=== PATIENT | female | born 1970 ===

== ENCOUNTER 2017-03-07 07:44 | Emergency (ER) | payer BC, OTHER ==
[2017-03-07] MEDS ORDERED: Tetan/Diph/Pertus SYR(Tdap)* 0.5 ML SYR(BOOSTRIX) use SYR IM ONE (08:27)
[2017-03-07] MEDS ORDERED: Rabies Vaccine, PCEC INJ* 1 ml IM ONE (08:28)
[2017-03-07] MEDS ORDERED: Rabies Immune Globulin 10 ML* 150 UNIT/ML VIAL IM ONE ×2 (08:31→09:00)
[2017-03-07] MEDS ORDERED: Rabies Immune Globulin 2 ML* 150 UNITS/ML VIAL IM ONE ×3 (08:33→09:00)
--- NOTE | 2017-03-07 08:44 | UC ---
Bite Injury/Animal HPI - HPI Summary HPI Summary: BAT EXPOSURE YESTERDAY MORNING 4AM. BAT WAS SEEN FLYING AROUND HER BEDROOM. NO BITE OF WHICH SHE IS AWARE. - History of Current Complaint Chief Complaint: UCGeneralIllness Stated Complaint: RABIES Time Seen by Provider: 03/07/17 08:25 Hx Obtained From: Patient Hx Last Menstrual Period: 02/18/17 Severity Currently: None Pain Intensity: 0 Pain Scale Used: 0-10 Numeric Has Animal Been Immunized?: No Associated Signs And Symptoms: Positive: Negative Animal Available for Observation: No Animal Control Notified: Yes - Allergies/Home Medications Allergies/Adverse Reactions: Allergies Allergy/AdvReac Type Severity Reaction Status Date / Time No Known Allergies Allergy Verified 03/07/17 07:50 Home Medications: Home Medications NK [No Home Medications Reported] 03/07/17 [History Confirmed 03/07/17] PMH/Surg Hx/FS Hx/Imm Hx Cardiovascular History: Hypertension - Surgical History Surgical History: Yes Surgery Procedure, Year, and Place: FOR ENDOMETRIOSIS - Family History Known Family History: Positive: Hypertension Family History: OVARIAN CANCER - MOM - Social History Alcohol Use: Weekly Substance Use Type: None Smoking Status (MU): Never Smoked Tobacco Review of Systems Constitutional: Negative Skin: Negative Respiratory: Negative Cardiovascular: Negative Gastrointestinal: Negative All Other Systems Reviewed And Are Negative: Yes Physical Exam Triage Information Reviewed: Yes Appearance: Well-Appearing, No Pain Distress, Well-Nourished Vital Signs: Initial Vital Signs Temp 99.4 F 03/07/17 07:50 Pulse 97 03/07/17 07:50 Resp 16 03/07/17 07:50 BP 151/94 03/07/17 07:50 Pulse Ox 100 03/07/17 07:50 Vital Signs Reviewed: Yes Eyes: Positive: Conjunctiva Clear ENT: Positive: Hearing grossly normal Neck: Positive: Supple Respiratory: Positive: No respiratory distress, No accessory muscle use Cardiovascular: Positive: Pulses Normal Abdomen Description: Positive: Soft Musculoskeletal: Positive: No Edema Neurological: Positive: Alert Psychological: Positive: Age Appropriate Behavior Skin: Negative: rashes Bite Injury Course/Dx - Differential Dx/Diagnosis Provider Diagnoses: BAT EXPOSURE - RABIES PROPHYLAXIS, TDAP BOOSTER Discharge - Discharge Plan Condition: Stable Disposition: HOME Patient Education Materials: Rabies Vaccine (By injection), Rabies Immune Globulin (By injection), Rabies (ED), Rabies Vaccine (ED) Referrals: Diana Hansen NP [Primary Care Provider] - If Needed Additional Instructions: Rabies Exposure You may have been exposed to the rabies virus. This is a serious problem. To prevent rabies, treatment must begin early. If we wait until you develop symptoms of rabies, it's too late. Rabies is a deadly infection. The rabies virus is found in an infected animal's saliva. After a bite, it grows in the muscle, then travels up the nerves into the brain. Using a series of shots, we can keep the virus from growing in your body. We clean the wound thoroughly. We usually inject rabies immune globulin ( antibodies against rabies) into the wound area. Another shot of immune globulin is given to treat the entire body. You'll need immunization against rabies. (If you're already immunized against rabies, you may need only a booster shot.) After the first shot, there are booster shots over the two weeks following exposure. These are usually done on day 3, 7, and 14. The repeat doses can also be given through the Health Department or by special arrangement with your doctor. The vaccine is 100% effective if started within 10 days, and also is highly effective if started beyond the 10 day recommendation. Because the incubation period for rabies is very long, up to one year, don't assume that you are safe if 10 days have already elapsed since your exposure. Bats are a special case, because they can carry rabies without becoming ill. Their mouths are so small that they can bite a sleeping person without the person being aware of the bite. That's why the health department may recommend rabies shots for a person who wakes up to discover a bat in the room. Ibuprofen or acetaminophen can be used for aching and swelling at the injection site. Call the doctor or return if you develop increasing pain, fever , chills, or spreading redness, or if you become short of breath or faint. FOLLOW-UP AT THE HEALTH DEPARTMENT FOR THE REMAINDER OF YOUR VACCINATIONS. TETANUS IMMUNIZATION GIVEN (TDAP): You have been given an immunization against tetanus. Please record this in your records. In general, a booster is needed only once every 10 years. The tetanus shot protects against tetanus or "lockjaw," which is a complication of certain wound infections (the tetanus shot cannot protect against the actual infection). The immunization site may become warm and red due to local reaction. If this occurs, apply warm compresses and take aspirin or ibuprofen to reduce inflammation and discomfort. Return for evaluation if the reaction becomes severe.
== END 2017-03-07 10:10 | disposition home or self-care (01) ==
LOC: UCEAST 07:44
DX: Z20.3 Contact with and (suspected) exposure to rabies (principal); Z23 Encounter for immunization
CPT/HCPCS: 90375; 90471; 90675; 90715; 96372; 99212; G0463